=== PATIENT | male | born 1965 | race Caucasian/White ===

== ENCOUNTER 2019-04-04 07:25 | Day surgery (SDC) | payer MEDICARE, MEDICAID ==
[2019-04-04] VITALS (8 sets, daily range): BP systolic 95–149; BP diastolic 48–77
[~2019-04-04] VITALS: Ht 165.1 cm; Wt 72.6 kg
[~2019-04-04 07:25] MED LIST: FISH OIL300 M1 PO; FLOMAX0.4 MG ORAL; FOLIC ACID1 MG ORAL; NEXIUM20 MG ORAL; NORCO 10/3251 EA ORAL; OXYCODONE HCL10 MG ORAL; OXYCODONE HCL5 M2 ORAL; SULFASALAZINE500 MG ORAL
[2019-04-04] MEDS ORDERED: Alfentanil 2ml Inj ONE ×2 (07:26)
--- NOTE | 2019-04-04 07:33 | Short Stay Surgery H&P ---
History of Present Illness History of Present Illness Chief Complaint Patient has history of Crohn's disease and anemia, GERDs HPI Pj Juárez is a 53 year old male who was admitted on for Crohns Disease, Colitis, Reflex Patient History Allergies: Coded Allergies: CEFUROXIME (Unverified Allergy, Unknown, 07/10/14) "uncomfortable" PAST MEDICAL HISTORY: (1) Hyperlipidemia (2) Anemia (3) BPH (benign prostatic hyperplasia) Medication History Scheduled Esomeprazole Magnesium (Nexium), 20 MG ORAL DAILY, (Reported) Folic Acid* (Folic Acid*), 1 MG ORAL DAILY, (Reported) Sulfasalazine* (Azulfidine*), 500 MG ORAL FOUR TIMES A DAY, (Reported) Tamsulosin HCl (Flomax), 0.4 MG ORAL DAILY, (Reported) Scheduled PRN Hydrocodone/Acetaminophen (Hydrocodon-Acetaminophn 10-325), 1 TAB ORAL Q4H PRN for For Pain, (Reported) Oxycodone Hcl* (Oxycodone Hcl*), 5 MG ORAL Q4H PRN for For Pain, (Reported) Oxycodone Hcl* (Oxycodone Hcl*), 10 MG ORAL Q4H PRN for For Pain, (Reported) Miscellaneous Medications [place]-3 Fatty Acids (Fish Oil), 300 MG PO, (Reported) Review of Systems Cardiovascular: Reports: no symptoms Respiratory: Reports: no symptoms Skeletal: Reports: no symptoms Gastrointestinal: Reports: gastro esophageal reflux disease Genitourinary: Reports: BPH Neurologic: Reports: no symptoms Endocrine: Reports: no symptoms Hematologic: Reports: no symptoms Physical Exam Skin: normal HENT: normal Heart: normal Lungs: normal Abdomen: normal Extremities: normal Genitourinary: normal Plan Plan of Care Upper GI and Lower GI endoscopy with possible biopsy. Preop Interventions None. Summary of Findings See the reports Attestation Are the patient's medical conditions optimized for surgery? Attestation Response: yes En Boateng MD Apr 04, 2019 07:33
--- NOTE | 2019-04-04 07:34 | Pre-Procedure Note/Attestation ---
Pre-Procedure Note/Attestation Complete Prior to Procedure Planned Procedure: left Procedure Narrative: Examination of the Upper and lower GI tract via endoscopy Indications for Procedure Pre-Operative Diagnosis: R/O colitis/ Gastritis/Peptic Ulcer/CA Attestation I attest that I discussed the nature of the procedure; its benefits; risks and complications; and alternatives (and the risks and benefits of such alternatives ), prior to the procedure, with the patient (or the patient's legal sales account representative). I attest that, if there was a reasonable possibility of needing a blood transfusion, the patient (or the patient's legal sales account representative) was given the [place] Department [employer] Services standardized written summary, pursuant to the [place] Blood Safety Act ([place] Health and Safety Code # 1645, as amended). I attest that I re-evaluated the patient just prior to the surgery and that there has been no change in the patient's H&P, except as documented below: En Boateng MD Apr 04, 2019 07:34
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
[2019-04-04] MEDS ORDERED: LR 1000ml ONE (08:00)
[2019-04-04] MEDS ORDERED: Lidocaine 1% MPF 10mg/ml 5ml ONE (08:00)
[2019-04-04] MEDS ORDERED: Propofol 200mg/20ml IV ONE (08:00)
[2019-04-04] MEDS ORDERED: LR 1000ml 1,000 ML IV SCH (08:00)
[2019-04-04] MEDS ORDERED: METHOCARBAMOL750 MG ORAL (08:01)
[2019-04-04] MEDS ORDERED: Hydromorphone 0.5mg/0.5ml inj IVP PRN (08:45)
--- NOTE | 2019-04-04 08:47 | Immediate Post-Op Evaluation ---
Immediate Post-Op Evalulation Immediate Post-Op Evalulation Procedure: EGD, colonoscopy, polypectomy Date of Evaluation: Apr 04, 2019 Time of Evaluation: 09:02 IV Fluids: LR 600 ml Blood Pressure Systolic: 095 Blood Pressure Diastolic: 54 Pulse Rate: 79 Respiratory Rate: 16 O2 Sat by Pulse Oximetry: 98 Temperature (Fahrenheit): 98.0 Pain Score (1-10): 0 Nausea: No Vomiting: No Patient Status: awake, patent Hydration Status: adequate Given Within 1 Hr of Incision: Sagrario Childress CRNA Apr 04, 2019 08:47
--- NOTE | 2019-04-04 08:53 | Endoscopy Procedure Note ---
Endoscopy Procedure Note General Indication for Procedure: Crohns disease and GERDs. Procedures Performed: EGD - Mild gastritis, biopsy obtained from antrum., colonoscopy - !/2 CM polyoid lesion in mid ascending colon removed by hot snare , otherwise normal total colonoscopy. Terminal ilium could not be penetrated Specimen: yes Pt Tolerated Procedure Well: Yes Estimated Blood Loss: none Anesthesia Anesthesiologist: Ms. Morena MAIN Anesthesia: moderate sedation Medications Medication Given: see anesthesia record Inserted Devices Implant(s) used?: No Quality Quality of Bowel Preparation: Good Did scope reach the cecum?: Yes Was there any complications?: No GI Core Measures 50 yrs or older w/o bx or poly: Yes 10yrs. F/U recommended: Yes If not recommended, why?: Med reason:<3 yrs.: System Reason:<3 yrs.: Last colonoscopy >= to 3yrs: Yes En Boateng MD Apr 04, 2019 08:53
--- NOTE | 2019-04-04 08:55 | Discharge Instructions ---
Discharge Instructions Discharge Instructions Follow up with: See the docotor in office. For Congestive Heart Failure Reminder Report to your physician any weight gain of 5 pounds or more in one week. En Boateng MD Apr 04, 2019 08:55
--- NOTE | 2019-04-04 10:05 | 48 Hour Post Anesthesia Eval ---
Post Anesthesia Evaluation Procedure: EGD, colonoscopy, polypectomy Date of Evaluation: Apr 04, 2019 Time of Evaluation: 10:04 Blood Pressure Systolic: 103 0: 52 Pulse Rate: 66 Respiratory Rate: 14 Temperature (Fahrenheit): 98.2 O2 Sat by Pulse Oximetry: 98 Airway: patent Nausea: No Vomiting: No Pain Intensity: 0 Hydration Status: adequate Cardiopulmonary Status: stable Mental Status/LOC: patient returned to baseline Follow-up Care/Observations: per GI Post-Anesthesia Complications: none Follow-up care needed: N/A Sagrario Berg CRNA Apr 04, 2019 10:05
--- NOTE | 2019-04-04 16:15 | Operative Note - Dictated ---
DATE OF OPERATION: 04/04/2019 SURGEON: En Boateng M.D. PROCEDURE: Total colonoscopy with polypectomy. PREOPERATIVE DIAGNOSES: History of Crohn disease, abdominal pain. POSTOPERATIVE DIAGNOSIS: Evidence of half a centimeter pedunculated polypoid lesion in mid ascending colon, which was removed with hot snare, otherwise normal total colonoscopy. Terminal ileum could not be penetrated. MEDICATIONS USED: Per Ms. Sagrario Berg CRNA. INSTRUMENT: GIF Olympus videocolonoscope. DESCRIPTION OF PROCEDURE: The patient after arriving in the endoscopy unit, was told about risks and benefits of the procedure, which he accepted and signed informed consent. He was then put on the left lateral decubitus position. After adequate IV sedation, the scope was gently passed through the anal area and a retroflexion maneuver, which was applied here revealed no evidence of major hemorrhoids. The rectum was completely within normal limits and no pathology was found. Gradually, the scope was passed through the left colon, introduced into transverse, and finally ascending colon all the way to the base of the cecum. The colonic mucosa was completely within normal findings and there was no any other pathology except incidental finding of half a centimeter pedunculated polypoid lesion over the mid ascending colon, which was removed with hot snare. The site of the polypectomy did not reveal any evidence of bleeding. At this point within 7 minutes, the scope was gradually pulled out and the colon cleanup was excellent. The patient tolerated the procedure well and left the endoscopy room in a good condition. En Boateng M.D. DR: ADELA JOB#: [id number] CC:
--- NOTE | 2019-04-04 16:45 | Operative Note - Dictated ---
DATE OF OPERATION: 04/04/2019 SURGEON: En Boateng M.D. PROCEDURE: Esophagogastroduodenoscopy with biopsy. PREOPERATIVE DIAGNOSES: Abdominal pain and history of gastroesophageal reflux. POSTOPERATIVE DIAGNOSIS: Mild gastritis. Biopsy was taken from the antrum, otherwise normal study. MEDICATION USED: Per Ms. Sagrario Berg CRNA. INSTRUMENT: GIF Olympus upper GI video endoscope. DESCRIPTION OF PROCEDURE: The patient after arriving in the endoscopy unit, was told about risks and benefits of the procedure, which he accepted and signed informed consent. He was then put on the left lateral decubitus position. After adequate IV sedation, the scope was gently passed through the cricopharyngeal area, was lodged in the upper esophagus and gradually advanced towards gastroesophageal junction. The entire length of esophagus looked normal without any pathology. GE junction also looked normal. There was no Tracey's or hiatal hernia. At this time, the scope was advanced into the stomach. Gastric cavity was distended with insufflation of air and gradually the areas of the fundus and the body and the antrum were examined, which revealed evidence of mild inflammatory process consistent with mild gastritis. There was no tumors, polyps, angiodysplasia, or ulcers, etc. One random biopsy from the antral area was obtained and subsequently the scope was passed through the pylorus. First and second portion of duodenum were found to be completely normal. At this time, the scope was pulled back into the stomach. A retroflexion maneuver was applied and the area of the gastroesophageal junction was examined, which revealed no other pathology. Finally, the scope was pulled out and procedure was terminated. The patient tolerated the procedure well. En Boateng M.D. DR: NETTA JOB#: [id number] CC:
== END 2019-04-04 09:55 | disposition home or self-care (01) ==
LOC: GAS 07:25
DX: K29.50 Unspecified chronic gastritis without bleeding (principal); K21.9 Gastro-esophageal reflux disease without esophagitis; K50.90 Crohn's disease, unspecified, without complications; E78.5 Hyperlipidemia, unspecified; Z79.899 Other long term (current) drug therapy; Z88.8 Allergy status to other drugs, medicaments and biological substances; F17.200 Nicotine dependence, unspecified, uncomplicated; D12.2 Benign neoplasm of ascending colon
CPT/HCPCS: 43239; 45385; J2704; J3490; 94003; 94150